=== PATIENT | female | born 1980 | race Caucasian/White ===

== ENCOUNTER 2017-08-02 15:39 | Emergency (ER) | END 2017-08-02 19:34 | disposition home or self-care (01) | DX: N93.8 Other specified abnormal uterine and vaginal bleeding (principal); R10.2 Pelvic and perineal pain | CPT/HCPCS: 76830; 76856; 81003; Z7502 ==

== ENCOUNTER 2017-12-17 22:52 | Emergency (ER) | END 2017-12-18 05:25 | disposition home or self-care (01) ==

== ENCOUNTER 2019-01-11 21:20 | Emergency (ER) | payer MEDICAID ==
[~2019-01-11] VITALS: Wt 81.2 kg
[~2019-01-11 21:20] MED LIST: ACET500C5 PO; CALC600T24 PO; CEPH-443 PO; IBUP-1542 PO; IBUP800T48 PO; LORA0.5T PO; MECL12.574 PO; ONDA4TAB8 PO; PRENAT PO
--- NOTE | 2019-01-12 01:36 | ERD ---
ER Documentation Chief Complaint Chief Complaint DYSURIA [id number] HPI 38-year-old 5-week female with no past medical history, history of ectopic in 2015 who presents with complaint of dysuria. States" I feel goosebumps" when she urinates as well as some burning. She otherwise denies fevers, nausea vomiting, abdominal pain, pelvic pain, vaginal bleeding or discharge. She saw her [facility] on December for regular checkup. She otherwise is without complaint reporting relatively good health. ROS All systems reviewed and are negative except as per history of present illness. Medications Home Meds Active Scripts Cephalexin* (Keflex*) 500 Mg Capsule, 500 MG PO BID for 7 Days, CAP Prov:JANUARY QUINTANA PA-C 01/12/19 Lorazepam* (Lorazepam*) 0.5 Mg Tablet, 0.5 MG PO Q6 PRN for ANXIETY, #15 TAB Prov:PASILABAN,ARRONAR F 12/18/17 Ondansetron Hcl* (Zofran*) 4 Mg Tablet, 4 MG PO Q8H PRN for NAUSEA AND/OR VOMITING, #30 TAB Prov:PASILABAN,ARRONAR F 12/18/17 Meclizine Hcl* (Antivert*) 12.5 Mg Tab, 25 MG PO Q6H PRN for DIZZINESS, #20 TAB Prov:PASILABAN,ARRONAR F 12/18/17 Acetaminophen* (Tylophen*) 500 Mg Capsule, 1 CAP PO Q6H PRN for PAIN AND OR ELEVATED TEMP, #20 CAP Prov:PASILABANARRONAR F 12/18/17 Ibuprofen* (Motrin*) 800 Mg Tab, 800 MG PO Q6H PRN for PAIN AND OR ELEVATED TEM P, #30 TAB Prov:PASILABAN,ARRONAR F 12/18/17 Cephalexin* (Keflex*) 500 Mg Capsule, 500 MG PO QID for 5 Days, CAP Prov:PASILABAN,KLAR F 12/18/17 Ibuprofen* (Ibuprofen*) 600 Mg Tablet, 600 MG PO .ONCE PRN for Mild Pain (Pain Score 1-3), #20 TAB 0 Refills Prov:CAROLEE ROLDAN MD 09/21/16 Reported Medications Calcium Carbonate* (Calcium Carbonate*) 600 MG Ca Tab, 600 MG PO DAILY, TAB 09/06/16 Multivit/Min/Fol Ac/Iron/Pren* ( S*) 1 Tab Tab, 1 TAB PO DAILY, TAB 02/16/16 Allergies Allergies: Coded Allergies: No Known Allergies (Verified Allergy, Unknown, 09/12/16) No Known Drug Allergies (Verified Allergy, Unknown, 09/20/16) PMhx/Soc History of Surgery: Yes (ECTOPIC removal, cholecystectomy) Anesthesia Reaction: No Hx Neurological Disorder: No Hx Respiratory Disorders: No Hx Cardiac Disorders: No Hx Psychiatric Problems: No Hx Miscellaneous Medical Probl: No Hx Alcohol Use: No Hx Substance Use: No Hx Tobacco Use: No FmHx Family History: No diabetes, No coronary disease, No other Physical Exam Vitals Vital Signs Date Temp Pulse Resp B/P (MAP) Pulse Ox O2 O2 Flow FiO2 Time Delivery Rate 01/12/19 98.0 81 18 116/56 99 Room Air 02:28 (76) 01/11/19 98.7 87 18 129/66 99 21:27 (87) Physical Exam I have reviewed the triage vital signs. Const: Well nourished, well developed, appears stated age Eyes: PERRL, no conjunctival injection HENT: NCAT, Neck supple without meningismus CV: RRR, Warm, well-perfused extremities RESP: CTAB, Unlabored respiratory effort GI: soft, non-tender, non-distended, no masses MSK: No gross deformities appreciated Skin: Warm, dry. No rashes Neuro: Alert, grossly intact Psych: Appropriate mood and affect. Results 24 hrs Laboratory Tests Test 01/12/19 01:38 Urine Color YELLOW Urine Clarity CLOUDY Urine pH 5.0 Urine Specific Leeper 1.006 Urine Ketones NEGATIVE mg/dL Urine Nitrite NEGATIVE mg/dL Urine Bilirubin NEGATIVE mg/dL Urine Urobilinogen NEGATIVE mg/dL Urine Leukocyte Esterase 3+ Ray/ul Urine Microscopic RBC 10 /HPF Urine Microscopic WBC 26 /HPF Urine Squamous Epithelial Cells MODERATE /HPF Urine Bacteria FEW /HPF Urine Hemoglobin NEGATIVE mg/dL Urine Glucose NEGATIVE mg/dL Urine Total Protein NEGATIVE mg/dl Procedures/MDM 38 yo 5 week female presents with symptoms concerning for UTI/Pyelonephritis, no flank pain or CVAT to suggest pyelonephritis. No other symptoms or risk factors concerning for STI. She denies vaginal bleeding. -- UA positive Plan: We will treat for UTI with cephalexin, PMD follow-up. Departure Diagnosis: Primary Impression: UTI (urinary tract infection) Condition: Stable Patient Instructions: Dysuria Additional Instructions: Thank you very much for allowing us to participate in your care. Your health and safety is our top priority at [facility]. Call your primary care doctor TOMORROW for an appointment during the next 2-4 da ys and bring all the information and medications prescribed. Have prescriptions filled and follow precisely the directions on the label. If the symptoms get worse and your provider is unavailable, return to the Emergency Department immediately. JANUARY QUINTANA PA-C Jan 12, 2019 01:36 JOSHUA BARRERA MD Jan 12, 2019 18:02
[2019-01-12] MEDS ORDERED: CEPH-443 PO ×2 (02:06→02:11)
[2019-01-12 02:28] VITALS: BP 116/56; PULSE 81; RESP 18
== END 2019-01-12 02:28 | disposition home or self-care (01) ==
LOC: FTE 21:20
DX: O23.41 Unspecified infection of urinary tract in pregnancy, first trimester (principal); Z3A.01 Less than 8 weeks gestation of pregnancy
CPT/HCPCS: 81001; Z7502; 99283

== ENCOUNTER 2019-01-17 13:41 | Emergency (ER) | payer MEDICAID ==
[~2019-01-17] VITALS: Ht 157.5 cm; Wt 86.0 kg
[2019-01-17 13:59] VITALS: Ht 157.5 cm; Wt 86.0 kg
[2019-01-17] MEDS ORDERED: ACET500C5 PO (18:11)
[2019-01-17 19:08] VITALS: BP 120/68; PULSE 78; RESP 18
--- NOTE | 2019-01-17 20:45 | ERD ---
ER Documentation Chief Complaint Chief Complaint LOW BACK & WAIST PAIN, PT 6 WKS PREG HPI 38-year-old 6-week female presents with complaint of lower back pain. Was seen here on January 12 with similar complaints. Diagnosed with UTI and sent home on cephalexin antibiotic. Since that time she says back pain has persisted although she denies worsening of pain or new concerning symptoms. She again denies red flag symptoms such as urinary or bowel incontinence, saddle anesthesia. She denies any numbness or paresthesias to lower extremities. Confirms no history of recent trauma or injury. She has not tried medications such as Tylenol for her pain. I advised patient that is safe in to use Tylenol to help control her pain. I explained in great detail that there is no emergent cause to her pain and that she does not warrant any additional emergent intervention at this time. At time of exam patient is in no acute distress able to stand and sit without issue triage vital signs stable. ROS All systems reviewed and are negative except as per history of present illness. Medications Home Meds Active Scripts Acetaminophen* (Tylophen*) 500 Mg Capsule, 1 CAP PO Q6H PRN for PAIN AND OR ELEVATED TEMP, #20 CAP Prov:JANUARY QUINTANA PA-C 01/17/19 Cephalexin* (Keflex*) 500 Mg Capsule, 500 MG PO BID for 7 Days, CAP Prov:JANUARY QUINTANA PA-C 01/12/19 Lorazepam* (Lorazepam*) 0.5 Mg Tablet, 0.5 MG PO Q6 PRN for ANXIETY, #15 TAB Prov:PASILAARRON BROWNAR F 12/18/17 Ondansetron Hcl* (Zofran*) 4 Mg Tablet, 4 MG PO Q8H PRN for NAUSEA AND/OR VOMITING, #30 TAB Prov:PASILABANARRONAR F 12/18/17 Meclizine Hcl* (Antivert*) 12.5 Mg Tab, 25 MG PO Q6H PRN for DIZZINESS, #20 TAB Prov:PASILABAN,KLAR F 12/18/17 Acetaminophen* (Tylophen*) 500 Mg Capsule, 1 CAP PO Q6H PRN for PAIN AND OR ELEVATED TEMP, #20 CAP Prov:PASILABAN,KLAR F 12/18/17 Ibuprofen* (Motrin*) 800 Mg Tab, 800 MG PO Q6H PRN for PAIN AND OR ELEVATED TEMP, #30 TAB Prov:SABIHA OCHOA 12/18/17 Cephalexin* (Keflex*) 500 Mg Capsule, 500 MG PO QID for 5 Days, CAP Prov:SABIHA OCHOA F 12/18/17 Ibuprofen* (Ibuprofen*) 600 Mg Tablet, 600 MG PO .ONCE PRN for Mild Pain (Pain Score 1-3), #20 TAB 0 Refills Prov:CAROLEE ROLDAN MD 09/21/16 Reported Medications Calcium Carbonate* (Calcium Carbonate*) 600 MG Ca Tab, 600 MG PO DAILY, TAB 09/06/16 Multivit/Min/Fol Ac/Iron/Pren* ( S*) 1 Tab Tab, 1 TAB PO DAILY, TAB 02/16/16 Allergies Allergies: Coded Allergies: No Known Allergies (Verified Allergy, Unknown, 09/12/16) No Known Drug Allergies (Verified Allergy, Unknown, 09/20/16) PMhx/Soc History of Surgery: Yes (ECTOPIC removal, cholecystectomy) Anesthesia Reaction: No Hx Neurological Disorder: No Hx Respiratory Disorders: No Hx Cardiac Disorders: No Hx Psychiatric Problems: No Hx Miscellaneous Medical Probl: No Hx Alcohol Use: No Hx Substance Use: No Hx Tobacco Use: No Physical Exam Vitals Vital Signs Date Temp Pulse Resp B/P (MAP) Pulse Ox O2 O2 Flow FiO2 Time Delivery Rate 01/17/19 98.2 78 18 120/68 98 Room Air 19:08 (85) 01/17/19 98.8 87 16 140/81 99 13:59 (100) Physical Exam I have reviewed the triage vital signs. Const: Well nourished, well developed, appears stated age Eyes: PERRL, no conjunctival injection HENT: NCAT, Neck supple without meningismus CV: RRR, Warm, well-perfused extremities RESP: CTAB, Unlabored respiratory effort GI: soft, non-tender, non-distended, no masses MSK: No gross deformities appreciated, no edema, no paraspinal tenderness, full ROM, straight leg test negative, normal gait Skin: Warm, dry. No rashes Neuro: Alert,grossly intact Psych: Appropriate mood and affect. Procedures/MDM 30-year-old female who again presents with complaint of lower back pain. Was seen and evaluated on January 12 diagnosed with UTI and sent home on cephalexin. She again does not have any red flag symptoms. I have no suspicion for emergent etiology to her back pain. I explained to patient in great detail given her workup is is limited given the degree of her pain and nonemergent nature of her symptoms. low suspicion for acute cord compression or cauda equina at this time, given presentation and symptoms, including epidural abscess or hematoma. Patient has no history of malignancy, active or distant history. Patient has no unexplained weight loss. No recent fevers, rigors, malaise, or recent infection. No history of IVDU or skin-popping. Patient does not have any history concerning for saddle anesthesia/perianal sensory loss or complaining of decreased rectal tone. Patient does not have urinary retention or inability to control urine from overflow. Patient has no tenderness overlying spinous process. Patient has no focal weakness on examination. Given exam and history, low suspicion for cord compression, cauda equina, epidural abscess/hematoma. Distally neurovascularly intact. Query likely musculoskeletal component. Discussed pain control,and follow up with PMD. Cautious return precautions discussed w/ full understanding. Low suspicion for acute cord compression or cauda equina at this time, given presentation and symptoms, including epidural abscess or hematoma. Patient has no history of malignancy, active or distant history. Patient has no unexplained weight loss. No recent fevers, rigors, malaise, or recent infection. No history of IVDU or skin-popping. Patient does not have any history concerning for saddle anesthesia/perianal sensory loss or complaining of decreased rectal tone. Patient does not have urinary retention or inability to control urine from overflow. Patient has no tenderness overlying spinous process. Patient has no focal weakness on examination. Given exam and history, low suspicion for cord compression, cauda equina, epidural abscess/hematoma. Distally neurovascularly intact. Query likely musculoskeletal component. Discussed pain control,and follow up with PMD. Cautious return precautions discussed w/ full understanding Departure Diagnosis: Primary Impression: Back pain Condition: Stable Patient Instructions: : Your First Trimester Changes, : Common Questions, Back Pain (Acute Or Chronic), , New Dx Referrals: COMM[facility] YOU HAVE RECEIVED A MEDICAL SCREENING EXAM AND THE RESULTS INDICATE THAT YOU DO NOT HAVE A CONDITION THAT REQUIRES URGENT TREATMENT IN THE EMERGENCY DEPARTMENT. FURTHER EVALUATION AND TREATMENT OF YOUR CONDITION CAN WAIT UNTIL YOU ARE SEEN IN YOUR DOCTORS OFFICE WITHIN THE NEXT 1-2 DAYS. IT IS YOUR RESPONSIBILITY TO MAKE AN APPOINTMENT FOR FOLOW-UP CARE. IF YOU HAVE A PRIMARY DOCTOR --you should call your primary doctor and schedule an appointment IF YOU DO NOT HAVE A PRIMARY DOCTOR YOU CAN CALL OUR PHYSICIAN REFERRAL HOTLINE AT IF YOU CAN NOT AFFORD TO SEE A PHYSICIAN YOU CAN CHOSE FROM THE FOLLOWING [facility] [address] [facility] [address] [facility] [facility] [address] [facility] [address] [place] [address] [facility]. [address] Additional Instructions: Call your primary care doctor TOMORROW for an appointment during the next 2-3 days.See the doctor sooner or return here if your condition worsens before your appointment time. JANUARY QUINTANA PA-C Jan 17, 2019 20:45
== END 2019-01-17 19:09 | disposition home or self-care (01) ==
LOC: FTE 13:41
DX: O99.89 Other specified diseases and conditions complicating pregnancy, childbirth and the puerperium (principal); M54.5 Low back pain; Z3A.01 Less than 8 weeks gestation of pregnancy
CPT/HCPCS: 99282

== ENCOUNTER 2019-07-03 23:20 | Outpatient (CLI) | payer MEDICAID ==
[~2019-07-03] VITALS: Ht 160 cm; Wt 85.6 kg
[~2019-07-03 23:20] MED LIST changes: -ACET500C5 PO; -CALC600T24 PO; -CEPH-443 PO; -IBUP-1542 PO; -IBUP800T48 PO; -LORA0.5T PO; -MECL12.574 PO; -ONDA4TAB8 PO
[2019-07-04 01:17] VITALS: BP 117/54; PULSE 78; RESP 18
[2019-07-04 01:19] VITALS: Ht 160 cm; Wt 85.6 kg
== END 2019-07-04 04:40 | disposition home or self-care (01) ==
LOC: OBT 23:20 → L-D 23:20 → OBT 07-04 04:40
PROVIDERS: ATTEND Obstetrics & Gynecology
DX: O26.893 Other specified pregnancy related conditions, third trimester (principal); R10.2 Pelvic and perineal pain; Z3A.29 29 weeks gestation of pregnancy; O09.523 Supervision of elderly multigravida, third trimester
CPT/HCPCS: 76815; 76817; 81003; 85025; Z7500; G0463